=== PATIENT | female | born 1970 ===

== ENCOUNTER 2017-12-13 10:14 | Emergency (ER) | payer MEDICAID, OTHER ==
[2017-12-13 10:24] VITALS: BMI 28.4
[2017-12-13 10:26] VITALS: O2SAT 97
[2017-12-13 11:31] LABS: HCG,QUALITATIVE URINE NEGATIVE (NEGATIVE)
[2017-12-13 11:36] LABS: SQUAMOUS EPITHIAL 4 /hpf (0-5); URINE BACTERIA OCC (<OCC); URINE BILIRUBIN NEGATIVE (NEGATIVE); URINE BLOOD 1+ (NEGATIVE); URINE CLARITY Hazy (Clear); URINE COLOR Yellow (YELLOW); URINE GLUCOSE (UA) NORMAL (Normal); URINE LEUKOCYTE ESTERASE 3+ Leu/uL (Negative); URINE PROTEIN NEGATIVE (NEGATIVE); URINE UROBILINOGEN NORMAL mg/dL (0.2-1.0)
--- NOTE | 2017-12-13 11:36 | C.PDOC ---
Time Seen by Provider: 12/13/17 10:46 Chief Complaint (Nursing): Upper Extremity Problem/Injury Past Medical History Vital Signs: Last Vital Signs Temp 98.7 F 12/13/17 10:24 Pulse 90 12/13/17 10:24 Resp 18 12/13/17 10:24 BP 122/83 12/13/17 10:24 Pulse Ox 97 12/13/17 11:36 - Medical History PMH: Asthma Family History: States: Unknown Family Hx - Social History Hx Tobacco Use: No Hx Alcohol Use: No Hx Substance Use: No - Immunization History Hx Tetanus Toxoid Vaccination: No Hx Influenza Vaccination: Yes Hx Pneumococcal Vaccination: No ED Course And Treatment - Laboratory Results Lab Interpretation: Abnormal (UA 61 WBC's) Urine POC: Negative O2 Sat by Pulse Oximetry: 97 Pulse Ox Interpretation: Normal - Other Rad L elbow X-Ray: Interpreted by Me (neg) Medical Decision Making Medical Decision Making: L elbow contusion minor bursal inflammation, no fx by exam nor x-ray UA/preg neg. Disposition Doctor Will See Patient In The: Office Counseled Patient/Family Regarding: Studies Performed, Diagnosis - Disposition Referrals: Mason Mesa MD [Staff Provider] - Disposition: HOME/ ROUTINE Disposition Time: 11:35 Condition: GOOD Additional Instructions: continue motrin/advil 400-600 mg every 6 hours for elbow pain ice packs 1/2 hour per hour, nothing hot L elbow films negative. Instructions: Bursitis (DC) Forms: [employer] (Pashto) - Clinical Impression Clinical Impression: Bursitis, Contusion of elbow, left, Dysuria
[2017-12-13 11:49] VITALS: BP 121/87; PULSE 80; RESP 16; TEMP 98.5
--- NOTE | 2017-12-13 12:10 | RAD ---
Date of service: The the 12/13/2017 PROCEDURE: Radiographs of the left elbow. HISTORY: Left elbow contusion yesterday COMPARISON: No prior. FINDINGS: BONES: Normal. No fracture. JOINTS: Normal. No osteoarthritis. SOFT TISSUES: Normal. JOINT EFFUSION: None. OTHER FINDINGS: None IMPRESSION: No evidence of acute displaced fracture nor dislocation. If symptoms persist or occult fracture suspected clinically consider repeat radiographs in 5-10 days as most fractures should become radiographically evident in this timeframe.
== END 2017-12-13 11:50 | disposition home or self-care (01) ==
LOC: C.ER 10:14
DX: S50.02XA Contusion of left elbow, initial encounter (principal); W10.9XXA Fall (on) (from) unspecified stairs and steps, initial encounter; Y92.9 Unspecified place or not applicable; M71.522 Other bursitis, not elsewhere classified, left elbow; R30.0 Dysuria

== ENCOUNTER 2018-01-23 07:01 | Emergency (ER) | payer SELFPAY ==
[2018-01-23 07:01] VITALS: BMI 28.4
[2018-01-23 07:09] VITALS: PULSE 64; O2SAT 98
--- NOTE | 2018-01-23 07:35 | C.PDOC ---
History Of Present Illness 47-year-old female, presents to the emergency department with complaints of non traumatic right hip pain x4 days. 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 Initially pain was mild but has gradually worsened, prompting visit. She notes pain worsens with certain movements, and is reproducible by palpation. She denies any numbness/weakness, nausea/vomiting or any other associated symptoms. No other complaints at this time. Time Seen by Provider: 01/23/18 07:11 Chief Complaint (Nursing): Hip Pain History Per: Patient History/Exam Limitations: no limitations Past Medical History Reviewed: Historical Data, Nursing Documentation, Vital Signs Vital Signs: Last Vital Signs Temp 98.8 F 01/23/18 07:05 Pulse 64 01/23/18 07:05 Resp 14 01/23/18 07:05 BP 116/79 01/23/18 07:05 Pulse Ox 98 01/23/18 07:05 - Medical History PMH: Asthma Family History: States: No Known Family Hx - Social History Hx Tobacco Use: No Hx Alcohol Use: No Hx Substance Use: No - Immunization History Hx Tetanus Toxoid Vaccination: No Hx Influenza Vaccination: Yes Hx Pneumococcal Vaccination: No Review Of Systems Constitutional: Negative for: Fever, Chills Respiratory: Negative for: Shortness of Breath Gastrointestinal: Negative for: Vomiting Musculoskeletal: Positive for: Other (hip pain) Neurological: Negative for: Weakness, Numbness Physical Exam - Physical Exam Appears: Non-toxic, No Acute Distress Skin: Warm, Dry, No Rash Head: Atraumatic, Normacephalic Eye(s): bilateral: Normal Inspection Nose: Normal Oral Mucosa: Moist Lips: Normal Appearing Neck: Normal ROM Chest: Symmetrical Cardiovascular: Rhythm Regular, No Murmur Respiratory: Normal Breath Sounds, No Accessory Muscle Use Extremity: No Deformity, Other (reproducible right hip pain) Neurological/Psych: Oriented x3, Normal Speech ED Course And Treatment O2 Sat by Pulse Oximetry: 98 Pulse Ox Interpretation: Normal (RA) - Other Rad xr hip X-Ray: Viewed By Me, Read By Radiologist Interpretation: Accession No. : [id number]. Patient Name / ID : TONY FARMER / [id number]. Exam Date : 01/23/2018 08:22:38 ( Approved ). Study Comment : Sex / Age : F / 47Y. Creator : Hung Jackson MD. Dictator : Hung Jackson MD. Molder Fitting : Environmental Sustainability Manager : Hung Jackson MD. Approver2 : Report Date : 01/23/2018 08:46:48. My Comment : . PROCEDURE: Right Hip Radiographs. HISTORY: atraumatic right hip pain. COMPARISON: None. FINDINGS: BONES: Normal. No fracture. JOINTS: Normal. SOFT TISSUES: Normal. OTHER FINDINGS: None. IMPRESSION: Normal radiographs of right hip. XR SPINE X-Ray: Viewed By Me, Read By Radiologist Interpretation: Accession No. : [id number]. Patient Name / ID : TONY FARMER / [id number]. Exam Date : 01/23/2018 08:22:23 ( Approved ). Study Comment : Sex / Age : F / 47Y. Creator : Hung Jackson MD. Dictator : Hung Jackson MD. Molder Fitting : Environmental Sustainability Manager : Hung Jackson MD. Approver2 : Report Date : 01/23/2018 08:47:15. My Comment : . Date of service: 01/23/2018. PROCEDURE: Radiographs of the Lumbar Spine. HISTORY: right hip pain, atraumatic. COMPARISON: No prior. FINDINGS: BONES: Normal alignment. No listhesis. No fracture. DISC SPACES: Unremarkable. OTHER FINDINGS: None. IMPRESSION: Unremarkable radiographs of the lumbar spine. Progress Note: Lidoderm patch, Toradol, XR Spine and hip ordered and reviewed. On re-evaluation patient feels better and is stable to be d/c home with PMD follow up. Disposition - Disposition Referrals: Get Connolly III, MD [Staff Provider] - Jose Mesa MD [Staff Provider] - Disposition: HOME/ ROUTINE Disposition Time: 09:17 Condition: STABLE Additional Instructions: Follow up with your PMD and Orthopedist within 1-2 days. Return to ED if feel worse. Prescriptions: Lidocaine 5% [Lidoderm] 1 patch TP DAILY #30 patch Ibuprofen [Motrin Tab] 600 mg PO Q8 #30 tab traMADol [Ultram] 50 mg PO Q6 #20 tab Instructions: Hip Pain (DC) Forms: [id number] (Haitian), Work Excuse - Clinical Impression Clinical Impression: Hip pain - Scribe Statement The provider has reviewed the documentation as recorded by the Scribe (Humberto Rivera) All medical record entries made by the Scribe were at my direction and personally dictated by me. I have reviewed the chart and agree that the record accurately reflects my personal performance of the history, physical exam, medical decision making, and the department course for this patient. I have also personally directed, reviewed, and agree with the discharge instructions and disposition.
[2018-01-23] MEDS ORDERED: Lidocaine 5% Patch TD STA (07:56)
[2018-01-23] MEDS ORDERED: Lidocaine 5% Patch TD ONE (08:04)
--- NOTE | 2018-01-23 08:50 | RAD ---
PROCEDURE: Right Hip Radiographs. HISTORY: atraumatic right hip pain COMPARISON: None. FINDINGS: BONES: Normal. No fracture. JOINTS: Normal. SOFT TISSUES: Normal. OTHER FINDINGS: None. IMPRESSION: Normal radiographs of right hip.
--- NOTE | 2018-01-23 08:51 | RAD ---
Date of service: 01/23/2018 PROCEDURE: Radiographs of the Lumbar Spine. HISTORY: right hip pain, atraumatic COMPARISON: No prior. FINDINGS: BONES: Normal alignment. No listhesis. No fracture. DISC SPACES: Unremarkable. OTHER FINDINGS: None. IMPRESSION: Unremarkable radiographs of the lumbar spine.
[2018-01-23 09:22] VITALS: BP 115/79; RESP 18; TEMP 98.1
== END 2018-01-23 09:25 | disposition home or self-care (01) ==
LOC: C.ER 07:01
DX: M25.551 Pain in right hip (principal)
CPT/HCPCS: 72100; 73502; 96372; 99284; J1885